=== PATIENT | male | born 1995 | race Caucasian/White ===

== ENCOUNTER 2018-09-12 09:01 | Emergency (ER) | payer BC ==
[2018-09-12] MEDS ORDERED: Acetaminophen/HYDROcodone 325-5 MG Tab PO ONE (09:02)
[2018-09-12] MEDS ORDERED: Ketorolac 60 MG/2 ML SDV IM ONE (09:38)
--- NOTE | 2018-09-12 10:37 | EDM.PDOC ---
ED HPI GENERAL MEDICAL PROBLEM - General Chief Complaint: Upper Extremity Injury/Pain Stated Complaint: broken arm Time Seen by Provider: 09/12/18 09:10 Source of Information: Reports: Patient History Limitations: Reports: No Limitations - History of Present Illness INITIAL COMMENTS - FREE TEXT/NARRATIVE: Patient presents to ER with complaints of right elbow and wrist pain. States fell last night on the ice and down a hill, landed on an outstretched hand. He had trouble finding a position of comfort to sleep in and this am, pain is much worse. Happened around 1 am. He has had a previous wrist injury with pin placement. Unable to fully extend his elbow without increased pain. Onset: Today, Sudden Duration: Hour(s): Location: Reports: Upper Extremity, Right Quality: Reports: Throbbing Severity: Moderate Improves with: Reports: Rest Worsens with: Reports: Movement Context: Reports: Trauma Associated Symptoms: Reports: No Other Symptoms Right Elbow Pain Score (Numeric/FACES): 3 - Related Data Allergies Allergy/AdvReac Type Severity Reaction Status Date / Time No Known Allergies Allergy Verified 09/12/18 09:02 Home Meds: Home Meds . [No Known Home Meds] 09/12/18 [History] Past Medical History Musculoskeletal History: Reports: Fracture - Past Surgical History Musculoskeletal Surgical History: Reports: ORIF Social & Family History - Family History Family Medical History: Noncontributory - Tobacco Use Smoking Status *Q: Never Smoker - Caffeine Use Caffeine Use: Reports: Coffee - Recreational Drug Use Recreational Drug Use: No Review of Systems - Review of Systems Review Of Systems: See Below Constitutional: Denies: Weakness Eyes: Reports: No Symptoms Ears: Reports: No Symptoms Nose: Reports: No Symptoms Mouth/Throat: Reports: No Symptoms Respiratory: Denies: Shortness of Breath Cardiovascular: Denies: Chest Pain, Palpitations GI/Abdominal: Denies: Abdominal Pain, Nausea, Vomiting Genitourinary: Reports: No Symptoms Musculoskeletal: Reports: Arm Pain, Joint Pain Skin: Reports: No Symptoms Neurological: Reports: No Symptoms ED EXAM, GENERAL - Physical Exam Exam: See Below Exam Limited By: No Limitations General Appearance: Alert, WD/WN, No Apparent Distress Head: Atraumatic, Normocephalic Neck: Normal Inspection, Supple, Non-Tender Respiratory/Chest: No Respiratory Distress, Lungs Clear, Normal Breath Sounds Cardiovascular: Regular Rate, Rhythm Extremities: Limited Range of Motion, Other Neurological: Alert, Oriented Course - Vital Signs Last Recorded V/S: Last Vital Signs Temp 96.3 F 09/12/18 09:04 Pulse 76 09/12/18 09:04 Resp 16 09/12/18 09:04 BP 140/93 H 09/12/18 09:04 Pulse Ox 97 09/12/18 09:04 - Orders/Labs/Meds Orders: Active Orders 24 hr Category Date Time Status Elbow 2V Rt [CR] Stat Exams 09/12/18 09:02 Taken Wrist Comp Min 3V Rt [CR] Stat Exams 09/12/18 09:02 Taken Meds: Medications Discontinued Medications Generic Name Dose Route Start Last Admin Trade Name González PRN Reason Stop Dose Admin Hydrocodone Bitart/Acetaminophen 2 packet 09/12/18 10:38 Take Home: Acetaminophen/Hydrocod, 2 Tab Pack PO 09/12/18 10:39 ONETIME ONE Ketorolac Tromethamine 60 mg 09/12/18 09:38 09/12/18 09:43 Toradol IM 09/12/18 09:39 60 mg ONETIME ONE Administration - Re-Assessments/Exams Free Text/Narrative Re-Assessment/Exam: 09/12/[address] report with Dr[address] Clay through [facility]. Recommended posterior splint and consult with ortho. Posterior splint placed. Put in sling. Is getting pain relief from the IM Toradol. Consulted with Dr. Fernando at [facility] in regards to the radial neck fracture and notable fat pad/hemarthrosis. Recommended the splint and follow up with him on Tuesday next week as fracture is stable at this point. Departure - Departure Time of Disposition: 10:38 Disposition: Home, Self-Care 01 Condition: Good Clinical Impression: Fracture of radius - Discharge Information Instructions: Forearm Fracture, [id number] Forms: ED Department Discharge Additional Instructions: 1. Ice to elbow frequently today if able 2. Ibuprofen or [place] for pain. Take ibuprofen 400 mg every 6 hours and can alternate with [place] 5/325 1-2 for pain every 6 hours 3. Keep splint and sling on until ortho consult 4. Call in am to Dr. Fernando's office for evaluation early next week 5. Contact either here or your PCP for any questions or concerns. - My Orders Last 24 Hours: My Active Orders 09/12/18 09:02 Elbow 2V Rt [CR] Stat Wrist Comp Min 3V Rt [CR] Stat - Assessment/Plan Last 24 Hours: My Active Orders 09/12/18 09:02 Elbow 2V Rt [CR] Stat Wrist Comp Min 3V Rt [CR] Stat
[2018-09-12] MEDS ORDERED: Take Home: Acetaminophen/HYDROcodone 325-5 MG, 2 Tab Pack PO ONE (10:38)
== END 2018-09-12 10:49 | disposition home or self-care (01) ==
LOC: CC.ED 09:01
DX: S52.134A Nondisplaced fracture of neck of right radius, initial encounter for closed fracture (principal); W00.0XXA Fall on same level due to ice and snow, initial encounter
CPT/HCPCS: 29125; 73070-RT; 73110-RT; 96372; 99283; A9270-GY; J1885